=== PATIENT | female | born 1995 | race Caucasian/White ===

== ENCOUNTER 2019-01-31 15:49 | Outpatient (CLI) | payer BC ==
--- NOTE | 2019-01-31 16:17 | RAD ---
EXAM: Cervical spine 3 views: HISTORY: Neck pain COMPARISON: None FINDINGS: No evidence for acute fracture or dislocation or significant acute process. No evidence for significant malalignment. Disc spaces are adequately preserved. No evidence for a focal bone lesion. IMPRESSION: Unremarkable spine.
== END 2019-01-31 15:50 | disposition home or self-care (01) ==
LOC: BICRAD 15:49
PROVIDERS: ATTEND Internal Medicine
DX: M54.2 Cervicalgia (principal)
CPT/HCPCS: 72040